=== PATIENT | female | born 2005 | race Caucasian/White ===

== ENCOUNTER 2023-08-15 11:08 | Emergency (ER) | payer SELFPAY ==
[2023-08-15] MEDS: Ketorolac 10 MG Tab PO ONE (12:03)
[2023-08-15] MEDS: Cyclobenzaprine 10 MG Tab PO ONE (12:04)
[2023-08-15] MEDS: Lidocaine 4% 1 each Patch TOP SCH (12:04)
== END 2023-08-15 12:13 | disposition home or self-care (01) ==
LOC: MW.ED 11:08
DX: M54.41 Lumbago with sciatica, right side (principal); Z88.0 Allergy status to penicillin; Z79.899 Other long term (current) drug therapy; Z75.8 Other problems related to medical facilities and other health care
CPT/HCPCS: 99283; A9270

== ENCOUNTER 2023-11-21 15:48 | Emergency (ER) | payer SELFPAY ==
[2023-11-21] MEDS: Azithromycin 250 MG Tab PO ONE (17:42)
[2023-11-21 18:15] LABS: CORONAVIRUS COVID-19 NAA NEGATIVE (NEGATIVE); INFLUENZA A NAA NEGATIVE (NEGATIVE); INFLUENZA B NAA NEGATIVE (NEGATIVE)
== END 2023-11-21 17:48 | disposition home or self-care (01) ==
LOC: MW.ED 15:48
DX: J40 Bronchitis, not specified as acute or chronic (principal); Z86.16 Personal history of COVID-19; Z88.0 Allergy status to penicillin; Z75.8 Other problems related to medical facilities and other health care
CPT/HCPCS: 0240U; 99283; A9270

== ENCOUNTER 2024-01-16 13:11 | Emergency (ER) | payer SELFPAY | END 2024-01-16 15:52 | disposition home or self-care (01) | LOC: MW.ED 13:11 | DX: J02.9 Acute pharyngitis, unspecified (principal); Z88.0 Allergy status to penicillin; Z79.2 Long term (current) use of antibiotics; Z75.8 Other problems related to medical facilities and other health care | CPT/HCPCS: 87651-QW; 99283 ==

== ENCOUNTER 2024-01-19 17:07 | Emergency (ER) | payer SELFPAY ==
[2024-01-19] MEDS: Orphenadrine 60 MG/2 ML Inj IM ONE (18:33)
[2024-01-19] MEDS: Ketorolac 30 MG/ML SDV IM ONE (18:33)
[2024-01-19] MEDS: Lidocaine 4% 1 each Patch TOP STA (18:34)
[2024-01-19 19:25] LABS: APPEARANCE,URINE CLOUDY; BILIRUBIN,URINE NEGATIVE (NEGATIVE); COLOR,URINE RED; GLUCOSE,URINE NEGATIVE (NEGATIVE); KETONES,URINE NEGATIVE (NEGATIVE); LEUKOCYTE ESTERASE,URINE NEGATIVE (NEGATIVE); NITRITE,URINE NEGATIVE (NEGATIVE); OCCULT BLOOD,URINE LARGE (NEGATIVE); PROTEIN,URINE 30 mg/dL (NEGATIVE); UROBILINOGEN,URINE 0.2 EU/dL (<2.0)
[2024-01-19 19:39] LABS: BACTERIA,URINE FEW (NEGATIVE); EPITHELIAL CELLS,URINE FEW (NONE-FEW); RBC,URINE TOO NUMEROUS TO CT (0-2/HPF)
== END 2024-01-19 20:09 | disposition home or self-care (01) ==
LOC: MW.ED 17:07
DX: M54.41 Lumbago with sciatica, right side (principal); Z79.899 Other long term (current) drug therapy; Z88.0 Allergy status to penicillin
CPT/HCPCS: 72100; 81001; 81025; 96372; 99283; A9270; J1885; J2360

== ENCOUNTER 2024-02-23 16:11 | Emergency (ER) | payer MEDICAID ==
[2024-02-23 17:00] LABS: APPEARANCE,URINE CLEAR; BILIRUBIN,URINE NEGATIVE (NEGATIVE); COLOR,URINE YELLOW; GLUCOSE,URINE NEGATIVE (NEGATIVE); KETONES,URINE NEGATIVE (NEGATIVE); LEUKOCYTE ESTERASE,URINE NEGATIVE (NEGATIVE); NITRITE,URINE NEGATIVE (NEGATIVE); OCCULT BLOOD,URINE NEGATIVE (NEGATIVE); PROTEIN,URINE 100 mg/dL (NEGATIVE); UROBILINOGEN,URINE 0.2 EU/dL (<2.0)
[2024-02-23 17:17] LABS: BACTERIA,URINE FEW (NEGATIVE); EPITHELIAL CELLS,URINE FEW (NONE-FEW); RBC,URINE 0-2 (0-2/HPF); WBC,URINE 0-1 (0-5/HPF)
== END 2024-02-23 17:51 | disposition home or self-care (01) ==
LOC: MW.ED 16:11
DX: R20.2 Paresthesia of skin (principal); Z32.02 Encounter for pregnancy test, result negative; Z88.0 Allergy status to penicillin; Z79.899 Other long term (current) drug therapy; Z75.8 Other problems related to medical facilities and other health care
CPT/HCPCS: 81001; 81025; 99283; 99284

== ENCOUNTER 2024-03-15 18:50 | Emergency (ER) | payer MEDICAID ==
[2024-03-15 19:20] LABS: APPEARANCE,URINE CLEAR; BILIRUBIN,URINE NEGATIVE (NEGATIVE); COLOR,URINE YELLOW; GLUCOSE,URINE NEGATIVE (NEGATIVE); KETONES,URINE NEGATIVE (NEGATIVE); LEUKOCYTE ESTERASE,URINE NEGATIVE (NEGATIVE); NITRITE,URINE NEGATIVE (NEGATIVE); OCCULT BLOOD,URINE NEGATIVE (NEGATIVE); PH,URINE 5.5 (5.0-8.0); PROTEIN,URINE NEGATIVE (NEGATIVE); UROBILINOGEN,URINE 0.2 EU/dL (<2.0)
[2024-03-15] MEDS ORDERED: traMADol 50 MG Tab PO STA (20:42)
[2024-03-15] MEDS ORDERED: Lidocaine 4% 1 each Patch TOP STA (20:42)
[2024-03-15] MEDS ORDERED: Methocarbamol 750 MG Tab PO STA (20:42)
== END 2024-03-15 20:54 | disposition home or self-care (01) ==
LOC: MW.ED 18:50
DX: M54.50 Low back pain, unspecified (principal); G89.29 Other chronic pain; Z88.0 Allergy status to penicillin; Z91.040 Latex allergy status; Z79.899 Other long term (current) drug therapy; Z75.8 Other problems related to medical facilities and other health care; V00.311A Fall from snowboard, initial encounter
CPT/HCPCS: 81003; 81025; 99283; 99284